=== PATIENT | female | born 1930 | race Caucasian/White ===

== ENCOUNTER 2016-12-29 11:24 | Day surgery (SDC) | payer MEDICARE, OTHER ==
[~2016-12-29] VITALS: Ht 165.1 cm; Wt 65.8 kg
[~2016-12-29 11:24] MED LIST: DILTIAZEM HYDR180 M1 PO; FUROSEMIDE 20MG20 MG FT; LEVOTHYROXIN0.112 M1 PO; NITROFURANTOIN100 M4 PO
[2016-12-29 17:23] VITALS: BP 185/74
--- NOTE | 2016-12-30 12:31 | Operative Note ---
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 The perilesional area was infiltrated with 1 mL of 2 percent lidocaine containing epinephrine. The markup was incised and the lesion was excised and submitted for frozen section analysis. It was reported as having clear margins, the pathologist thought that it was most likely a verrucous lesion. Accordingly a geometric plastic repair was done with interrupted 5-0 nylon sutures. Blood loss for all the procedure was less than 10 mL and completely stopped. Patient was sent to recovery in good general condition. EBL (ml): 2 Specimens obtained: Same as above at 1230
== END 2016-12-29 16:18 | disposition home or self-care (01) ==
LOC: SDC 11:24
PROVIDERS: Otolaryngology
PROC: 0HB1XZX Excision of Face Skin, External Approach, Diagnostic (ICD-10-PCS; principal; 2016-12-29 12:45)
DX: D48.5 Neoplasm of uncertain behavior of skin (principal)

== ENCOUNTER → 2017-02-02 | Outpatient (CLI) | payer MEDICARE, OTHER ==
[2017-02-02 19:43] LABS: HEMOGLOBIN 14.4 g/dL (12.2-16.2); LYMPH # 1.8 K/mm3 (0.7-4.5); LYMPH % 27.5 % (10-50.0)
[2017-02-03 14:29] LABS: BUN 34 mg/dL (7-18)
[2017-02-03 14:31] LABS: GFR (ESTIMATED) 43 ML/MIN (59-)
== END ==
LOC: LAB 18:42
PROVIDERS: Nurse Practitioner Family
DX: I10 Essential (primary) hypertension (principal)

== ENCOUNTER → 2017-02-14 | Outpatient (CLI) | payer MEDICARE, OTHER ==
--- NOTE | 2017-02-14 14:39 | CARDIOVASCULAR REPORT ---
"Cerebrovascular Exam Indications: 785.9 Bruit. IMPRESSIONS 1. The bilateral vertebral arteries are patent with normal antegrade flow. 2. Study suggests 20-49% stenosis involving the right internal carotid artery and the left internal carotid artery. History: Risk factors: Hypertension. Mild confusion. Vertigo. Carotid duplex study. Complete study and Doppler flow study including spectral analysis, color and nixon scale imaging. Height: Height: 165.1cm. Height: 65in. Weight: Weight: 63.5kg. Weight: 139.7lb. Body mass index: BMI: 23.3kg/m^2. Body surface area: BSA: 1.71m^2. Location: Vascular laboratory. Patient status: Outpatient. Tables: Arterial flow: + +--------+--------+ |Location |V sys |V ed | + +--------+--------+ |Right CCA - proximal|76.8cm/s|14.7cm/s| + +--------+--------+ |Right CCA - distal |70.5cm/s|16.8cm/s| + +--------+--------+ |Right ECA |74.2cm/s|--------| + +--------+--------+ |Right ICA - proximal|87.3cm/s|20.3cm/s| + +--------+--------+ |Right ICA - mid |76.1cm/s|22.3cm/s| + +--------+--------+ |Right ICA - distal |66.6cm/s|22cm/s | + +--------+--------+ |Right vertebral |47.8cm/s|--------| + +--------+--------+ |Left CCA - proximal |77.9cm/s|14.5cm/s| + +--------+--------+ |Left CCA - distal |76.7cm/s|18.9cm/s| + +--------+--------+ |Left ECA |73.3cm/s|--------| + +--------+--------+ |Left ICA - proximal |59.6cm/s|17.6cm/s| + +--------+--------+ |Left ICA - mid |88cm/s |30cm/s | + +--------+--------+ |Left ICA - distal |111cm/s |32.8cm/s| + +--------+--------+ |Left vertebral |55.9cm/s|--------| + +--------+--------+ Velocity ratios: + + + + + + | |Right, V sys|Right, V ed|Left, V sys|Left, V ed| + + + + + + |Max ICA/dist CCA|1.24 |1.33 |1.45 |1.74 | + + + + + + (Report amended ) Electronically signed by: Mariano Del Real [id number]"
== END ==
LOC: RT 13:31
DX: R09.89 Other specified symptoms and signs involving the circulatory and respiratory systems (principal)

== ENCOUNTER → 2017-02-16 | Outpatient (CLI) | payer MEDICARE, OTHER ==
[2017-02-16 14:55] LABS: LYMPH # 1.8 K/mm3 (0.7-4.5); LYMPH % 30.1 % (10-50.0)
[2017-02-16 15:13] LABS: BUN 19 mg/dL (7-18)
[2017-02-16 15:33] LABS: GFR (ESTIMATED) 53 ML/MIN (59-)
== END ==
LOC: LAB 14:41
PROVIDERS: Nurse Practitioner Family
DX: I10 Essential (primary) hypertension (principal)